=== PATIENT | female | born 1945 | race Caucasian/White ===

== ENCOUNTER → 2024-01-08 12:42 | Outpatient (REF) | payer MEDICARE, BC, SELFPAY | LOC: HWRAD 12:42 | PROVIDERS: ATTENDING PHYSICIAN Specialist; FAMILY PHYSICIAN Internal Medicine | DX: R31.0 Gross hematuria (principal) | CPT/HCPCS: 76770 ==

== ENCOUNTER → 2024-06-30 10:01 | Outpatient (REF) | payer MEDICARE, BC, SELFPAY | LOC: HWRAD 10:01 | PROVIDERS: ATTENDING PHYSICIAN Nurse Practitioner Family; FAMILY PHYSICIAN Internal Medicine | DX: N95.0 Postmenopausal bleeding (principal) | CPT/HCPCS: 76830; 76856 ==

== ENCOUNTER → 2024-08-02 18:18 | Outpatient (REF) | payer MEDICARE, BC, SELFPAY | LOC: MRI 3T 18:18 | PROVIDERS: ATTENDING PHYSICIAN Nurse Practitioner Family; FAMILY PHYSICIAN Internal Medicine | DX: R93.89 Abnormal findings on diagnostic imaging of other specified body structures (principal) | CPT/HCPCS: 72197; A9575 ==

== ENCOUNTER → 2024-08-15 10:30 | Outpatient (REF) | payer MEDICARE, BC, SELFPAY | LOC: SDSPAT 10:30 | PROVIDERS: ATTENDING PHYSICIAN Obstetrics & Gynecology Gynecologic Oncology; FAMILY PHYSICIAN Internal Medicine | DX: C54.1 Malignant neoplasm of endometrium (principal) | CPT/HCPCS: 36415; 86850; 86900; 86901; 93005 ==

== ENCOUNTER → 2024-08-22 13:21 | Outpatient (REF) | payer MEDICARE, BC, SELFPAY | LOC: RAD 13:21 | PROVIDERS: ATTENDING PHYSICIAN Obstetrics & Gynecology Gynecologic Oncology; FAMILY PHYSICIAN Internal Medicine | DX: C54.1 Malignant neoplasm of endometrium (principal); Z12.4 Encounter for screening for malignant neoplasm of cervix; N95.0 Postmenopausal bleeding; I10 Essential (primary) hypertension | CPT/HCPCS: 71260; 74177; Q9967 ==

== ENCOUNTER 2024-08-30 06:25 | Day surgery (SDC) | payer MEDICARE, BC, SELFPAY ==
[2024-08-15 13:49] VITALS: BMI 34.0
--- NOTE | 2024-08-16 13:49 | PTCARENOTE ---
Patients 08/15 ECG abnormal- reviewed by Dr. Valera- no additional interventions required
--- NOTE | 2024-08-29 20:00 | W.CON.GYNONC ---
Chief Complaint
-
endometrial Cancer
History of Present Illness
79 white female menopausal since age 59 presents for evaluation and treatment of newly diagnosed endometrial cancer.
She reports not having a gynecologic exam for the past 5 years, she experienced spotting and vaginal bleeding for almost 2 years.
She did see a nurse practitioner in 2022 and an ultrasound was done but the no biopsy was performed. Ultrasound specifically
showed uterus to be 8.1 cm in size, there were fibroids present, the stripe was measured at 4 mm however it is stated that the
stripe cannot be adequately visualized. The bleeding continued and became heavier which led her to return back to the office for
further evaluation and a repeat ultrasound was obtained. Over the course of the past year the patient actually had appendicitis,
underwent CT abdomen and pelvis in July 2023 and underwent a laparoscopic appendectomy 08/13/2023. She has also had
kidney stone and underwent extraction of kidney stone September 01, 2023. The more recent ultrasound of pelvis performed June 30,
2023 shows uterus to be 8.7 cm, fibroids are still present, endometrial lesion and mass cannot be excluded, measuring almost 5.6
cm. Suggestion was made for endometrial sampling or pelvic MRI. Patient was seen by Dr. Sloan, endometrial biopsy shows
high�grade adenocarcinoma with focal p53 positive features, mismatch repair proteins are expressed and intact. MRI of the pelvis
performed August 02, 2024 shows uterus to be retroverted, there is appearance of the fibroid. Left posterior lateral margin of the
uterus is an exophytic mass, this measures 3.9 cm, toward the fundal portion of the endometrial canal enhancing mass protruding
endometrial cavity, this mass measures 3.6 x 4.4 x 3.6 cm, there is no evidence of extension of the mass into the lower uterine
segment. Comments are made that there is a lymph node posterior to right external iliac vessel short axis VIII millimeter and a
lymph node posterior left external iliac vein that is prominent at 6 mm.
Past medical history is significant for hypercholesterolemia, hypertension, osteopenia and B12 deficiency
Past surgical history significant for appendectomy and kidney stone extraction
Medications include lisinopril, Bystolic, amlodipine, Prolia, atorvastatin, multiple vitamins B12 D3
Family history significant for father with brain cancer, brother with RCCcarcinoma
Social history significant for being a , of COVID complications in 2019, patient denies tobacco drug marijuana
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
Ethnicity is Ashkenazi Worship
Screening tests include mammogram up�to�date within the last 6 months, colonoscopy 2 months ago for benign polyps were
removed
Social History
Patient denies ever using tobacco.
Social use of alcohol.
Denies any illicit drug use.
Patient has not had any occupational exposure.
Marital Status: Patient is
Gynecological History
Age at Menarche 15 years. Age at menopause: 59 years. Patient reports 2 pregnancies. Her age at first full term was 26
years.
Patient Reported Level of Pain
Pain: no pain.
Treatment Recommendations for Pain
Continue current pain regimen.
Medical History
Allergies
Allergies reflect when allergies were last updated in [facility].
Penicillins Allergy (Verified 08/23/24 10:44)
Hives
Sulfa (Sulfonamide Antibiotics) Allergy (Verified 08/23/24 10:44)
Hives
Physical Exam
Physical Exam
Pelvic Examination:
External normal labia, urethra, anus.
Vagina: Normal mucosa.
Cervix: normal appearance, no discharge.
Uterus: 10 weeks size.
Adnexa: No pelvic mass.
RVE: no masses or nodularity
General: Well developed, well nourished patient. In no acute distress.
Ears, Nose, Throat, and Mouth: Normal oral mucosa and oropharynx.
Neck: No thyromegaly. No cervical lymphadenopathy.
Lungs: Clear to auscultation. Good air movement bilaterally.
Cardiac: Regular rate. Regular rhythm. No murmurs appreciated.
Right Breast: No masses or dimpling. No nipple discharge.
Left Breast: No masses or dimpling. No nipple discharge.
Abdomen: Abdomen is soft. Non�tender to palpation. Non�distended.
Extremities: No edema.
Hematologic/Lymphatic: No palpable lymphadenopathy.
Musculoskeletal: Normal range of motion. Strength and Tone are normal.
Skin:Non�jaundiced. No petechia. No purpura.
Neurologic: Speech is fluent. Normal gait and station. Cranial nerves intact.
Results
-
Diagnostic Imaging Report
SignedOrder #:[id number]
Exams: CT Chest/abd/pel W Iv Cont
PROCEDURE: CT Chest/abd/pel W Iv Cont
CLINICAL INDICATION: Malignant neoplasm of endometrium
TECHNIQUE: Oral contrast was administered. Axial images were obtained through the chest, abdomen and pelvis following intravenous nonionic contrast administration with coronal and sagittal reformations. Automated dose reduction technique utilized.
COMPARISON: CT Abdomen and pelvis without intravenous or oral contrast August 13, 2023. MRI Pelvis August 02, 2024
FINDINGS:
Chest: There is some mild dependent bilateral subsegmental atelectasis. There is no focal parenchymal mass, consolidation, pneumothorax, pleural effusion or pericardial effusion. The heart is at least top normal in size. There is no significant
hilar, mediastinal or axillary lymphadenopathy. There are degenerative changes within the thoracic spine. The thyroid gland is predominantly homogeneous.
Abdomen: Simple appearing right lobe hepatic cyst measures approximately 5 cm, image 13 series 301. There are at least three additional scattered subcentimeter low-attenuation hepatic lesions too small to characterize and difficult to compare to
prior study obtained without intravenous contrast. There is at least one small suspected gallbladder stone, image 25 series 301. No biliary tract dilatation is seen. No focal splenic space-occupying lesion is seen. Peripherally calcified area is
seen in the splenic hilum measuring approximately 1 cm which could represent a splenic artery aneurysm, unchanged. There is an incidental small accessory spleen again seen, image 18 series 301. No focal abnormality of the pancreas is identified and
there is no focal adrenal enlargement. Tiny nonobstructing left renal calculi are noted. Renal excretion is symmetric. The abdominal aorta is normal in caliber with calcific atherosclerotic changes. There is no significant retroperitoneal
lymphadenopathy. No intestinal obstruction or free air is seen.
Pelvis: Irregular area of central hypodensity is seen in the uterus likely representing the patient's primary endometrial carcinoma. Calcified degenerated leiomyomatous changes are again suspected along the left side of the uterus. The urinary
bladder is incompletely distended and incompletely opacified without gross focal intrinsic abnormality. There is no true pelvis free fluid or significant lymphadenopathy. There are a few bilateral subcentimeter groin lymph nodes without significant
change.
IMPRESSION:
Irregular central area of hypodensity in the uterus most likely representing the patient's primary endometrial carcinoma.
Left-sided uterine calcifications again seen likely representing degenerated leiomyomatous changes.
Approximate 5 cm simple hepatic cyst. At least three additional subcentimeter low-attenuation hepatic lesions too small to characterize and difficult to compare to prior CT which was obtained without intravenous contrast.
No suspicious mass or lymphadenopathy throughout the chest and no suspicious true pelvic lymphadenopathy.
Possible small splenic artery aneurysm, stable.
Tiny nonobstructing left renal calculi.
Cholelithiasis.
Electronically signed by Teo Hinton MD, 08/22/2024 5:35 PM
[facility] Dose Report: Up-to-date CT equipment and radiation dose reduction techniques were employed. CTDIvol: 7.4 - 13.2 mGy. DLP: 782 mGy-cm.
Dictated By: Mary Jane EDUARDO,Teo Tavarez.
Dictated Date & Time: 08/22/24 6023
Impression / Plan
-
I met with the patient, her children and daughter�in�law, I explained to her diagnosis of endometrial cancer, symptoms, incidence
risk factors and management. Patient has risk factors for endometrial cancer including age, hypertension and obesity. I explained to
her staging as well as grading of the endometrial cancer, clinically she has stage I disease, pathology suggest high�grade
endometrioid adenocarcinoma but exact histology is not defined in will need to wait until hysterectomy is performed. My
recommendations are as follows
#1 Labs including CMP CBC CA125 will be obtained, I will additionally add anemia labs as well as TSH given her hypertension
#2 CT chest abdomen and pelvis for initial staging is recommended
#3 patient needs to see primary care physician for preoperative medical clearance, she appears to visit with him fairly frequently
every 3 to 4 months. I do not see any major contraindications to the proposed surgery
#4 she will be scheduled for surgery to include robotic assisted total laparoscopic hysterectomy, bilateral salpingo�oophorectomy,
washings, injection of cervix with ICG dye for mapping and identification of sentinel lymph nodes and possibly pelvic or para�aortic
lymph node dissection.
Risks of surgery including infection bleeding injury to adjacent organs DVT pulmonary embolism cardiovascular complications and
need for additional treatments was discussed and reviewed.
#5 surgery will be scheduled at [facility] the week of August 29, 2024.
#6 patient will return back to the office 2 to 3 weeks after procedures completed, she understands that depending on stage and final
histology she may need to undergo additional treatment. Based on her age as well as high�grade adenocarcinoma she is not
considered to be low risk, I discussed with her the potential need for radiation therapy and intermediate risk situations as well as
need for systemic chemotherapy and radiation in our high risk patients with extrauterine documentation of disease.
[2024-08-30] VITALS (16 sets, daily range): BP systolic 88–143; BP diastolic 52–88; BMI 34.0
[2024-08-30] MEDS: MOBIC 15 MG PO (08:31)
[2024-08-30] MEDS: HEPARIN 5000 UNITS SC (08:31)
[2024-08-30] MEDS: TYLENOL 1000 MG PO (08:31)
[2024-08-30] MEDS: NEURONTIN 300 MG PO (08:31)
[2024-08-30] MEDS: NORMOSOL-R/PLASMALYTE-A 1000 IV (08:32)
[2024-08-30] MEDS: DILAUDID 0.25 MG IV (13:01)
--- NOTE | 2024-08-30 13:23 | OR.RPT ---
Operative Report
Operative Report
Date of procedure: August 30, 2024
Preoperative diagnosis: Endometrial cancer, high-grade
Postoperative diagnosis: Same, extensive intra-abdominal adhesions secondary to prior peritonitis from ruptured appendicitis
Procedure:
Robotic assisted tumor cytoreduction including total laparoscopic hysterectomy, bilateral salpingo-oophorectomy, infracolic omentectomy, multiple peritoneal biopsies
Robotic assisted pelvic sentinel lymphadenectomy
Robotic assisted laparoscopic enterolysis
Injection of cervix with ICG dye, bilateral, 4 mapping and identification of sentinel lymph nodes
Tap block
Surgeon:Teo Simental
Assist: Kelsey Lepe PA-C, Rolf Hartman PA-C
Anesthesia: General Endotracheal intubation
Estimated blood loss: 100 cc
Complication: None
Urine output: 600 cc
Procedure in detail: This patient was brought to the operating room for definitive management of high-grade endometrial adenocarcinoma. Patient has had obstructive uropathy secondary to nephrolithiasis and has undergone extraction of stone
cystoscopy over the past year. Approximately 1 year ago she had ruptured appendicitis and was treated with appendectomy and had had peritoneal abscesses and drains. She now has a new diagnosis of high-grade endometrial cancer. Upon arrival to the
operating room she was placed in supine position, general anesthesia was administered, she was intubated without any difficulty appropriate IVs were placed her arms were wrapped in foam and placed along the patient's side and protected across all
joints she was placed in in lithotomy position using yellowfin stirrups and she was prepped on the abdomen perineum and vagina Gallego catheter was inserted under sterile conditions. Timeout procedure was carried out she received Ancef and Flagyl for
prophylaxis, she had received heparin in the preop area for DVT prophylaxis. I went ahead and placed a speculum in the vagina anterior lip of the cervix was grasped with single-tooth tenaculum the cervix was injected with ICG dye at 3 and 9:00
positions at approximately 5 and 10 mm deep stations. 12 out of 4 to 5 cc. Next the cervical canal was dilated uterine manipulator needle loom operator helper type with 3.0 cm DEANNA ring was placed in the uterine cavity and vaginal cuff occluder was insufflated with
fluid to prevent escape of pneumoperitoneum. Attention was turned abdominally Veress needle was inserted just below the left subcostal margin and pneumoperitoneum was created up to pressure of 15 mmHg. 8 mm X Xi robotic port was introduced in the
mid epigastric region into the peritoneal cavity and then under direct visualization upper abdomen was examined liver spleen diaphragms falciform ligament were normal. We injected ropivacaine and Decadron for tap block 2 fingerbreadths below the
lateral aspect of costal margins between muscle and peritoneum. After this 8 mm X Xi robotic ports were placed in the right and left upper quadrants as well as right and left lateral abdomen patient was placed in 28 degree Trendelenburg and robotic
system was docked. There was extensive adhesions of loops of small bowel to peritoneum and uterus in the pelvis these were slowly taken down there were fine miliary implants of small white tissue and extensive area of adhesion was biopsied in the
right and left pelvis and submitted to pathology. Once the loops of bowel were carefully and taken down we turned our attention to the uterus. Washings were collected from the posterior cul-de-sac. Anterior and posterior leaves of the
broad ligament were dissected open, right and left paracolic gutters were biopsied again because of presence of miliary implants. Right and left round ligaments were sealed and divided. Both infundibulopelvic ligaments were isolated they were
sealed 3 times and divided tubes and ovaries were left attached to the uterus next the course of ureters were visualized in the retroperitoneum bilaterally. We used the near infrared system to identify sentinel lymph nodes. Vici lymph nodes
were identified in the left external iliac vein region, as well as left obturator fossa some additional left-sided lymph nodes were needed to be removed in order to expose and removed the sentinel lymph nodes. On the right side we followed the
lymphatic channels that ended up in sentinel lymph nodes along the right external iliac artery region as well as right obturator fossa and again these lymph nodes were removed and additional fibroadipose tissue and lymph nodes were removed for
better visualization and extraction of the specimen. Bladder flap was sharply developed and advanced below the cervicovaginal junction. There was a calcified myoma that was sitting in the posterior cul-de-sac with adherence to sigmoid colon and
some of the fatty tissue related to colon. This fibroid was actually pedunculated I was able to carefully dissect the colon and its mesentery away from this mass and freed the fibroid completely from the posterior cul-de-sac. Uterine arteries were
identified bilaterally and sealed and divided uterine arteries followed by cardinal ligaments followed by uterosacral ligaments were sealed and divided circumferential incision was made over the DEANNA ring until the entire specimen was free. We
introduced a large endoscopic bag through the vagina and placed the uterine specimen within the bag and then extracted uterus cervix pedunculated fibroid and bilateral tubes and ovaries through the vagina and this was sent to pathology. In the
meantime omentum was elevated infracolic omentectomy was performed I used vessel sealer to seal and across omental tissue as well as omental vessels from hepatic flexure to the splenic flexure omentum was removed through the vagina and submitted to
pathology. Following this the vaginal cuff was closed with 0 Vicryl suture ligature in a [id number] fashion at both the right and left apices. Next V-Loc suture was used to close the vaginal cuff starting the right side to the left and then
back to the right side in 2 layers. We irrigated the pelvis copiously and there was no evidence of additional bleeding. All laparoscopic instruments were removed and the pneumoperitoneum was released. We then went ahead and undocked the robotic
system we closed all the incisions with 4-0 Monocryl at the level of the skin and abdomen subcuticular fashion. The vagina was examined there was no lacerations Gallego catheter was removed. Skin glue was applied to all incisions. Patient was
awakened and extubated and returned back to recovery room stable awake and extubated condition. Counts of laps instruments and needle was correct x 2. I was present and scrubbed for entire procedure as dictated above.
Disposition: To PACU, alert awake extubated
[2024-08-30] MEDS: MORPHINE SULFATE 1 MG IV (13:31)
[2024-08-30 17:38] LABS: % Basophils 0.2 % (0-2); % Eosinophils 0.2 % (0-6); % Immature Granulocytes 0.5 % (0-0.5); % Lymphocytes 3.3 % (20.5-51.1); % Monocytes 1.6 % (1.7-9.3); % Neutrophils 94.2 % (42.2-75.2); Absolute Immature Granulocytes 0.1 10^3/uL (0-0.05); Absolute Lymphocytes 0.4 10^3/uL (1.2-3.4); Absolute Monocytes 0.2 10^3/uL (0.1-0.6); Absolute Neutrophils 12.4 10^3/uL (1.4-6.5); Hematocrit 30.2 % (37.0-47.0); Hemoglobin 10.2 g/dL (12.0-16.0); Mean Corp Hgb Conc. 33.8 g/dL (33.0-37.0); Mean Corpuscular Hgb 30.4 pg (27.0-31.0); Mean Corpuscular Volume 90.1 fL (81.0-99.0); Mean Platelet Volume 11.3 fL (7.4-10.4); Nucleated Red Blood Cells % 0 %; Platelet Count 182 10^3/uL (130-400); Red Blood Cell Count 3.35 10^6/uL (4.20-5.40); Red Cell Dist. Width 13.6 % (11.5-14.5); White Blood Cell Count 13.2 10^3/uL (4.8-10.8)
== END 2024-08-30 18:03 | disposition home or self-care (01) ==
LOC: SDS 06:25
PROVIDERS: ATTENDING PHYSICIAN Obstetrics & Gynecology Gynecologic Oncology; FAMILY PHYSICIAN Internal Medicine
DX: C54.1 Malignant neoplasm of endometrium (principal); K66.0 Peritoneal adhesions (postprocedural) (postinfection); Z87.19 Personal history of other diseases of the digestive system; D25.9 Leiomyoma of uterus, unspecified
CPT/HCPCS: 58571; 38570; 88305; 88307; 88309; 88311; 85025; 88112; 88341; 88342; 88360

== ENCOUNTER → 2025-02-07 09:56 | Outpatient (REF) | payer MEDICARE, BC, SELFPAY | LOC: HWRAD 09:56 | PROVIDERS: ATTENDING PHYSICIAN Internal Medicine | DX: R74.01 Elevation of levels of liver transaminase levels (principal) | CPT/HCPCS: 76700 ==

== ENCOUNTER → 2025-02-09 15:50 | Outpatient (REF) | payer MEDICARE, BC, SELFPAY | LOC: HWRCS 15:50 | PROVIDERS: ATTENDING PHYSICIAN Internal Medicine Cardiovascular Disease; FAMILY PHYSICIAN Internal Medicine | DX: R06.02 Shortness of breath (principal) | CPT/HCPCS: 93306 ==

== ENCOUNTER → 2025-03-09 08:23 | Outpatient (REF) | payer MEDICARE, BC, SELFPAY | LOC: RCS 08:23 | PROVIDERS: ATTENDING PHYSICIAN Internal Medicine Cardiovascular Disease; FAMILY PHYSICIAN Internal Medicine | DX: R06.02 Shortness of breath (principal) | CPT/HCPCS: 78452; 93017; A9500; J2785 ==

== ENCOUNTER → 2025-06-16 11:26 | Outpatient (REF) | payer MEDICARE, BC, SELFPAY ==
[2025-06-16 16:58] LABS: ALT (SGPT) 49 U/L (0-35); AST (SGOT) 39 U/L (14-36); Albumin 4.5 g/dl (3.5-5.0); Alkaline Phosphatase 97 U/L (38-126); Blood Urea Nitrogen 21 mg/dl (7-17); Calcium 9.5 mg/dl (8.4-10.2); Carbon Dioxide 27 mmol/L (22-30); Chloride 108 mmol/L (98-107); Glucose 101 mg/dl (70-99); Potassium 3.2 mmol/L (3.5-5.1); Sodium 141 mmol/L (135-145); Total Protein 7.0 g/dl (6.3-8.2); eGFR > 60.00
[2025-06-16 17:16] LABS: Vitamin D, 25-OH*** 60.3 ng/mL (30-80)
== END ==
LOC: HWLAB 11:26
PROVIDERS: ATTENDING PHYSICIAN Internal Medicine Rheumatology; FAMILY PHYSICIAN Internal Medicine
DX: E55.9 Vitamin D deficiency, unspecified (principal); M81.0 Age-related osteoporosis without current pathological fracture; Z79.899 Other long term (current) drug therapy
CPT/HCPCS: 80053; 82306

== ENCOUNTER → 2025-07-18 06:55 | Outpatient (REF) | payer MEDICARE, BC, SELFPAY | LOC: HWWDC 06:55 | PROVIDERS: ATTENDING PHYSICIAN Physician Assistant Surgical; FAMILY PHYSICIAN Internal Medicine | DX: Z12.31 Encounter for screening mammogram for malignant neoplasm of breast (principal) | CPT/HCPCS: 77063; 77067 ==